=== PATIENT | male | born 1995 | race Two or more races ===

== ENCOUNTER 2019-01-19 11:43 | Emergency (ER) | payer MEDICAID ==
[~2019-01-19] VITALS: Ht 172.7 cm; Wt 81.6 kg
--- NOTE | 2019-01-19 12:09 | NUR ---
ED Nurse Note: ONEIL JEAN-BAPTISTE [address] ORDERED REHAB PROGRAM FOR OD. PT INHALED BATH BOMBS WITH HIS FRIEND. STAFF FOUND THEM LETHARGIC . PT CANNOT BE D/C'D TO PUBLIC CONTACT THE COORDINATION OF CARE PHONE #s [phone] PLEASE SEE FORM IN RACK FOR BED [address]. [address] REPORTER FOR FACILITY IS AT BEDSIDE. AWAITING SONIA FARRAR.
[2019-01-19 12:42] LABS: BASOPHILS % (AUTO) 1.3 % (0.0-2.0); EOSINOPHILS % (AUTO) 0.5 % (0.0-3.0); HEMATOCRIT 47.7 % (42.0-52.0); HEMOGLOBIN 16.3 G/DL (14.2-18.0); LYMPHOCYTES % (AUTO) 16.2 % (20.0-45.0); MEAN CORPUSCULAR VOLUME 86 FL (80-99); MONOCYTES % (AUTO) 8.6 % (1.0-10.0); NEUTROPHILS % (AUTO) 73.4 % (45.0-75.0); PLATELET COUNT 305 K/UL (150-450); RED BLOOD COUNT 5.51 M/UL (4.70-6.10); WHITE BLOOD COUNT 6.9 K/UL (4.8-10.8)
[2019-01-19 12:52] LABS: ANION GAP 8 mmol/L (5-15); BLOOD UREA NITROGEN 17 mg/dL (7-18); CARBON DIOXIDE 26 MMOL/L (21-32); CHLORIDE 103 MMOL/L (98-107); POTASSIUM 4.6 MMOL/L (3.5-5.1); SODIUM 137 MMOL/L (136-145)
[2019-01-19 12:57] LABS: ALANINE AMINOTRANSFERASE 164 U/L (12-78); ALBUMIN/GLOBULIN RATIO 1.1 (1.0-2.7); ALKALINE PHOSPHATASE 95 U/L (46-116); ASPARTATE AMINO TRANSFERASE 61 U/L (15-37); BILIRUBIN,TOTAL 0.4 MG/DL (0.2-1.0)
[2019-01-19 12:58] VITALS: BP 92/58
--- NOTE | 2019-01-19 13:25 | Emergency Room Report ---
History of Present Illness General Chief Complaint: Overdose Source: Patient, EMS, Caregiver Present Illness HPI Patient presents by paramedics with a partner Patient and his partner that was brought together, reported to use 'bath bombs' with the returns processor being bollauren. This was last night approximately 11:00 Today the case management found the patient and his partner somewhat lethargic more than usual Patient initially denied any use of chemicals however does report purchasing this product that the facility placing it in bath water and drinking It was unclear specifically the amount Patient reports that he feels somewhat lethargic However denies any chest pain denies any short of breath denies any abdominal pain denies any headache He reports that he took this started to feel high Allergies: Coded Allergies: No Known Allergies (Unverified , 01/19/19) Patient History Past Medical History: see triage record Pertinent Family History: none Reviewed Nursing Documentation: PMH: Agreed; PSxH: Agreed Nursing Documentation-PM Past Medical History: No Stated History Review of Systems All Other Systems: negative except mentioned in HPI Physical Exam Vital Signs Date Time Temp Pulse Resp B/P (MAP) Pulse Ox O2 Delivery O2 Flow Rate FiO2 01/19/19 11:34 99.0 120 18 136/86 100 Room Air Sp02 EP Interpretation: reviewed, normal General Appearance: well appearing, no apparent distress Head: normocephalic, atraumatic Eyes: bilateral eye PERRL, bilateral eye EOMI ENT: hearing grossly normal, normal pharynx, TMs + canals normal, uvula midline Neck: full range of motion, supple, no meningismus, no bony tend Respiratory: lungs clear, normal breath sounds, no rhonchi, no respiratory distress, no retraction, no accessory muscle use Cardiovascular #1: normal peripheral pulses, regular rate, rhythm, no edema, no gallop, no JVD, no murmur Gastrointestinal: normal bowel sounds, non tender, soft, no mass, no organomegaly, non-distended, no guarding, no hernia, no pulsatile mass, no rebound Genitourinary: no CVA tenderness Musculoskeletal: normal inspection Neurologic: oriented x3, responsive - Patient appears somewhat sleepy and groggy, easily arousable with verbal commands no obvious focal deficit, ware finisher III- XII nml as tested, motor strength/tone normal, sensory intact Psychiatric: no suicidal/homicidal ideation Skin: normal color, no rash, warm/dry, palpation normal Lymphatic: normal inspection, no adenopathy Medical Decision Making Diagnostic Impression: Primary Impression: bath salt ingestion Additional Impression: Drug abuse ER Course Given the patient's history and presentation [employer] control was contacted [phone] Case is discussed they do recommend sodium checks which have already been performed they also report that this substance that was used is not classic for what was previously abused, leading to agitated states Which does correlate with the patient's clinical presentation as well Patient has tested positive for marijuana he reports he has not used marijuana recently At this time remains hemodynamically stable awake alert baseline examination and blood work are appropriate and patient will have initial conservative outpatient trial Labs Test 01/19/19 11:48 01/19/19 12:27 Urine Opiates Screen Negative (NEGATIVE) Urine Barbiturates Screen Negative (NEGATIVE) Phencyclidine (PCP) Screen Negative (NEGATIVE) Urine Amphetamines Screen Negative (NEGATIVE) Urine Benzodiazepines Screen Negative (NEGATIVE) Urine Cocaine Screen Negative (NEGATIVE) Urine Marijuana (THC) Screen Positive (NEGATIVE) White Blood Count 6.9 K/UL (4.8-10.8) Red Blood Count 5.51 M/UL (4.70-6.10) Hemoglobin 16.3 G/DL (14.2-18.0) Hematocrit 47.7 % (42.0-52.0) Mean Corpuscular Volume 86 FL (80-99) Mean Corpuscular Hemoglobin 29.5 PG (27.0-31.0) Mean Corpuscular Hemoglobin Concent 34.1 G/DL (32.0-36.0) Red Cell Distribution Width 12.0 % (11.6-14.8) Platelet Count 305 K/UL (150-450) Mean Platelet Volume 6.2 FL (6.5-10.1) Neutrophils (%) (Auto) 73.4 % (45.0-75.0) Lymphocytes (%) (Auto) 16.2 % (20.0-45.0) Monocytes (%) (Auto) 8.6 % (1.0-10.0) Eosinophils (%) (Auto) 0.5 % (0.0-3.0) Basophils (%) (Auto) 1.3 % (0.0-2.0) Sodium Level 137 MMOL/L (136-145) Potassium Level 4.6 MMOL/L (3.5-5.1) Chloride Level 103 MMOL/L (98-107) Carbon Dioxide Level 26 MMOL/L (21-32) Anion Gap 8 mmol/L (5-15) Blood Urea Nitrogen 17 mg/dL (7-18) Creatinine 1.0 MG/DL (0.55-1.30) Estimat Glomerular Filtration Rate > 60 mL/min (>60) Glucose Level 106 MG/DL (74-106) Calcium Level 9.0 MG/DL (8.5-10.1) Total Bilirubin 0.4 MG/DL (0.2-1.0) Aspartate Amino Transf (AST/SGOT) 61 U/L (15-37) Alanine Aminotransferase (ALT/SGPT) 164 U/L (12-78) Alkaline Phosphatase 95 U/L (46-116) Total Protein 7.7 G/DL (6.4-8.2) Albumin 4.0 G/DL (3.4-5.0) Globulin 3.7 g/dL Albumin/Globulin Ratio 1.1 (1.0-2.7) Serum Alcohol < 3 mg/dL Rhythm Strip Diag. Results EP Interpretation: yes Rate: 90 Rhythm: NSR, no PVC's, no ectopy Last Vital Signs Date Time Temp Pulse Resp B/P (MAP) Pulse Ox O2 Delivery O2 Flow Rate FiO2 01/19/19 12:58 99.0 98 15 92/58 95 Room Air Status: improved Disposition: HOME, SELF-CARE Condition: Improved Referrals: NOT CHOSEN IPA/MD,REFERRING (PCP) Additional Instructions: Patient is provided with the discharge instructions notified to follow up with primary doctor in the next 2-3 days otherwise return to the er with any worsening symptoms. Please note that this report is being documented using [employer] technology. This can lead to erroneous entry secondary to incorrect interpretation by the dictating instrument. Mariel William DO January 19, 2019 13:25
--- NOTE | 2019-01-19 13:42 | NUR ---
ED Nurse Note: sandwich/juice provided to the patient. Dr. William is ok with it. family caseworker at bedside.
[2019-01-19 14:08] VITALS: BP 92/56
--- NOTE | 2019-01-19 14:08 | NUR ---
ER DISCHARGE NOTE: Patient is cleared to be discharged per SONIA TESFAYE, pt is aox4, on room air, with stable vital signs. pt was given dc and prescription instructions, pt was able to verbalize understanding, pt id band removed without complications. pt is able to ambulate with steady gait. pt took all belongings.
--- NOTE | 2019-01-19 14:10 | NUR ---
ED Nurse Note: patient accompanied by the casework specialist from the facility back to the facility.
== END 2019-01-19 14:08 | disposition home or self-care (01) ==
LOC: EDBD 11:43 → EMR 12:25
DX: T50.901A Poisoning by unspecified drugs, medicaments and biological substances, accidental (unintentional), initial encounter (principal); Y92.9 Unspecified place or not applicable; F19.10 Other psychoactive substance abuse, uncomplicated
CPT/HCPCS: 36415; 80053; 80307; 80329; 85025; 99283

== ENCOUNTER 2019-02-03 15:36 | Emergency (ER) | payer MEDICAID ==
[~2019-02-03] VITALS: Ht 165.1 cm; Wt 72.6 kg
[2019-02-03 15:38] VITALS: BP 127/81
--- NOTE | 2019-02-03 15:45 | NUR ---
ED Nurse Note: Patient walked into ED from [facility] rehabilitation program with outpatient case manager due to abdominal pain on the left since 01/29/19. patient reports vomiting on 01/29/19 and the pain came back today as well as vomiting. patient is alert awake x4 ambulatory. breathing unlabored and even. patient reports 10/ pain. outpatient case manager at bedside
[2019-02-03] MEDS ORDERED: INVEGA SUS39 MG/0.25 IM (15:46)
--- NOTE | 2019-02-03 15:54 | Emergency Room Report ---
History of Present Illness General Chief Complaint: Abdominal Pain Source: Patient Present Illness [facility] Patient presents with complaints of left lower abdominal pain Reports that started on Thursday Patient also reports that he is feeling some increased pain in the left upper quadrant Denies any chest pain or shortness of breath denies any diarrhea Denies any fevers Patient did have vomiting episode on Thursday and then again one episode today Denies any right-sided abdominal pain denies any rash denies any change in medications Allergies: Coded Allergies: No Known Allergies (Unverified , 01/19/19) Patient History Past Medical History: see triage record Pertinent Family History: none Reviewed Nursing Documentation: PMH: Agreed; PSxH: Agreed Nursing Documentation-PMH Past Medical History: No Stated History History Of Psychiatric Problem: Yes - bipolar Review of Systems All Other Systems: negative except mentioned in HPI Physical Exam Vital Signs Date Time Temp Pulse Resp B/P (MAP) Pulse Ox O2 Delivery O2 Flow Rate FiO2 02/03/19 15:38 98.2 97 18 95 Room Air Sp02 EP Interpretation: reviewed, normal General Appearance: well appearing, no apparent distress Head: normocephalic, atraumatic Eyes: bilateral eye PERRL, bilateral eye EOMI ENT: hearing grossly normal, normal pharynx, TMs + canals normal, uvula midline Neck: full range of motion, supple, no meningismus, no bony tend Respiratory: lungs clear, normal breath sounds, no rhonchi, no respiratory distress, no retraction, no accessory muscle use Cardiovascular #1: normal peripheral pulses, regular rate, rhythm, no edema, no gallop, no JVD, no murmur Gastrointestinal: normal bowel sounds, non tender - Subjectively points to the left lower quadrant for discomfort, soft, no mass, no organomegaly, non- distended, no guarding, no hernia, no pulsatile mass, no rebound Genitourinary: no CVA tenderness Musculoskeletal: normal inspection Neurologic: oriented x3, responsive, electrical project engineer III-XII nml as tested, motor strength/ tone normal, sensory intact Psychiatric: mood/affect normal Skin: normal color, no rash, warm/dry, palpation normal Lymphatic: normal inspection, no adenopathy Medical Decision Making Diagnostic Impression: Primary Impression: Vomiting ER Course With the history exam and presentation, multiple differentials considered, including but not limited to appendicitis, gastritis, cholecystitis, diverticulitis Patient liver function test appear improved from previous presentation Repeat abdominal exam is soft and benign all blood work otherwise at baseline levels patient resting comfortably and is stable for initial conservative outpatient trial Labs Test 02/03/19 15:55 White Blood Count 8.7 K/UL (4.8-10.8) Red Blood Count 5.13 M/UL (4.70-6.10) Hemoglobin 15.3 G/DL (14.2-18.0) Hematocrit 42.6 % (42.0-52.0) Mean Corpuscular Volume 83 FL (80-99) Mean Corpuscular Hemoglobin 29.8 PG (27.0-31.0) Mean Corpuscular Hemoglobin Concent 35.9 G/DL (32.0-36.0) Red Cell Distribution Width 11.0 % (11.6-14.8) Platelet Count 271 K/UL (150-450) Mean Platelet Volume 5.5 FL (6.5-10.1) Neutrophils (%) (Auto) 55.4 % (45.0-75.0) Lymphocytes (%) (Auto) 30.2 % (20.0-45.0) Monocytes (%) (Auto) 11.5 % (1.0-10.0) Eosinophils (%) (Auto) 1.5 % (0.0-3.0) Basophils (%) (Auto) 1.4 % (0.0-2.0) Urine Color Pale yellow Urine Appearance Clear Urine pH 7 (4.5-8.0) Urine Specific [place] 1.010 (1.005-1.035) Urine Protein Negative (NEGATIVE) Urine Glucose (UA) Negative (NEGATIVE) Urine Ketones Negative (NEGATIVE) Urine Blood Negative (NEGATIVE) Urine Nitrite Negative (NEGATIVE) Urine Bilirubin Negative (NEGATIVE) Urine Urobilinogen Normal MG/DL (0.0-1.0) Urine Leukocyte Esterase Negative (NEGATIVE) Sodium Level 138 MMOL/L (136-145) Potassium Level 3.7 MMOL/L (3.5-5.1) Chloride Level 103 MMOL/L (98-107) Carbon Dioxide Level 26 MMOL/L (21-32) Anion Gap 9 mmol/L (5-15) Blood Urea Nitrogen 17 mg/dL (7-18) Creatinine 1.0 MG/DL (0.55-1.30) Estimat Glomerular Filtration Rate > 60 mL/min (>60) Glucose Level 94 MG/DL (74-106) Calcium Level 8.8 MG/DL (8.5-10.1) Total Bilirubin 0.3 MG/DL (0.2-1.0) Aspartate Amino Transf (AST/SGOT) 45 U/L (15-37) Alanine Aminotransferase (ALT/SGPT) 119 U/L (12-78) Alkaline Phosphatase 93 U/L (46-116) Total Protein 7.5 G/DL (6.4-8.2) Albumin 3.9 G/DL (3.4-5.0) Globulin 3.6 g/dL Albumin/Globulin Ratio 1.1 (1.0-2.7) Lipase 142 U/L (73-393) Urine Opiates Screen Negative (NEGATIVE) Urine Barbiturates Screen Negative (NEGATIVE) Phencyclidine (PCP) Screen Negative (NEGATIVE) Urine Amphetamines Screen Negative (NEGATIVE) Urine Benzodiazepines Screen Negative (NEGATIVE) Urine Cocaine Screen Negative (NEGATIVE) Urine Marijuana (THC) Screen Negative (NEGATIVE) Last Vital Signs Date Time Temp Pulse Resp B/P (MAP) Pulse Ox O2 Delivery O2 Flow Rate FiO2 02/03/19 15:38 98.2 97 18 95 Room Air Status: improved Disposition: HOME, SELF-CARE Condition: Improved Scripts Famotidine (PEPCID AC) 20 Mg Tablet 20 MG PO DAILY, #10 TAB Prov: Mariel William DO 02/03/19 Referrals: NOT CHOSEN IPA/MD,REFERRING (PCP) Additional Instructions: Patient is provided with the discharge instructions notified to follow up with primary doctor in the next 2-3 days otherwise return to the er with any worsening symptoms. Please note that this report is being documented using [employer] technology. This can lead to erroneous entry secondary to incorrect interpretation by the dictating instrument. Mariel William DO February 03, 2019 15:54
[2019-02-03 16:37] LABS: APPEARANCE,URINE CLEAR; BILIRUBIN, URINE NEGATIVE (NEGATIVE); COLOR,URINE PALE YELLOW; GLUCOSE, URINE (UA) NEGATIVE (NEGATIVE); KETONES,URINE NEGATIVE (NEGATIVE); LEUKOCYTE ESTERASE ,URINE NEGATIVE (NEGATIVE); NITRITE,URINE NEGATIVE (NEGATIVE); PH,URINE 7 (4.5-8.0); PROTEIN,URINE NEGATIVE (NEGATIVE); UROBILINOGEN,URINE NORMAL MG/DL (0.0-1.0)
[2019-02-03 16:42] LABS: BASOPHILS % (AUTO) 1.4 % (0.0-2.0); EOSINOPHILS % (AUTO) 1.5 % (0.0-3.0); HEMATOCRIT 42.6 % (42.0-52.0); HEMOGLOBIN 15.3 G/DL (14.2-18.0); LYMPHOCYTES % (AUTO) 30.2 % (20.0-45.0); MEAN CORPUSCULAR VOLUME 83 FL (80-99); MONOCYTES % (AUTO) 11.5 % (1.0-10.0); NEUTROPHILS % (AUTO) 55.4 % (45.0-75.0); PLATELET COUNT 271 K/UL (150-450); RED BLOOD COUNT 5.13 M/UL (4.70-6.10); WHITE BLOOD COUNT 8.7 K/UL (4.8-10.8)
[2019-02-03 16:44] LABS: ANION GAP 9 mmol/L (5-15); BLOOD UREA NITROGEN 17 mg/dL (7-18); CALCIUM 8.8 MG/DL (8.5-10.1); CARBON DIOXIDE 26 MMOL/L (21-32); CHLORIDE 103 MMOL/L (98-107); POTASSIUM 3.7 MMOL/L (3.5-5.1); SODIUM 138 MMOL/L (136-145)
[2019-02-03 16:50] LABS: ALANINE AMINOTRANSFERASE 119 U/L (12-78); ALBUMIN 3.9 G/DL (3.4-5.0); ALBUMIN/GLOBULIN RATIO 1.1 (1.0-2.7); ALKALINE PHOSPHATASE 93 U/L (46-116); ASPARTATE AMINO TRANSFERASE 45 U/L (15-37); BILIRUBIN,TOTAL 0.3 MG/DL (0.2-1.0)
[2019-02-03] MEDS ORDERED: PEPCID AC20 M2 PO (17:43)
[2019-02-03 17:49] VITALS: BP 127/81
--- NOTE | 2019-02-03 17:50 | NUR ---
ER DISCHARGE NOTE: Patient is cleared to be discharged per SONIA TESFAYE, pt is aox4, on room air, with stable vital signs. pt was given dc and prescription instructions, pt was able to verbalize understanding, pt id band and iv site removed without complications. pt is able to ambulate with steady gait. pt took all belongings.
== END 2019-02-03 17:50 | disposition home or self-care (01) ==
LOC: EMR 15:49
DX: R11.10 Vomiting, unspecified (principal); R10.32 Left lower quadrant pain; R10.12 Left upper quadrant pain; F31.9 Bipolar disorder, unspecified
CPT/HCPCS: 36415; 80053; 80307; 81003; 83690; 85025; 99283

== ENCOUNTER 2019-04-04 18:09 | Emergency (ER) | payer MEDICAID, OTHER ==
[~2019-04-04] VITALS: Ht 165.1 cm; Wt 72.1 kg
[~2019-04-04 18:09] MED LIST: INVEGA SUS39 MG/0.25 IM; PEPCID AC20 M2 PO
[2019-04-04 18:34] VITALS: BP 130/89
--- NOTE | 2019-04-04 18:34 | NUR ---
ED Nurse Note: Pt has been experiencing R molar toothache x 3 weeks, could not get appointment with his dentist. Pain 10/ kofi. AOx4, VSS. Will cont to monitor.
--- NOTE | 2019-04-04 19:09 | NUR ---
HAND-OFF: Report given to Lianna SMYTH. patient is stable in bed
[2019-04-04] MEDS ORDERED: Tylenol #3 tab (300mg/30mg) ORAL ONE (19:15)
--- NOTE | 2019-04-04 19:17 | Emergency Room Report ---
History of Present Illness General Chief Complaint: Toothache Source: Patient Present Illness HPI 23 YO Male presents to the ED c/o 06/30 in severity pain and tenderness to Tooth # 30 which is cracked, x 3 weeks. Pt. denies fevers or chills. Was told that he needs extraction however could not afford to have the work done, and the [facility] dental clinic does not answer the phones to make an appt. PT. denies swollen tender lymph nodes. Pt. reports no relief from tylenol. Allergies: Coded Allergies: No Known Allergies (Unverified , 01/19/19) Patient History Past Medical History: see triage record Past Surgical History: none Pertinent Family History: none Reviewed Nursing Documentation: PMH: Agreed; PSxH: Agreed Nursing Documentation-PMH Past Medical History: No Stated History Review of Systems All Other Systems: negative except mentioned in HPI Physical Exam Vital Signs Date Time Temp Pulse Resp B/P (MAP) Pulse Ox O2 Delivery O2 Flow Rate FiO2 04/04/19 18:18 98.4 86 20 130/89 (103) 96 Room Air Sp02 EP Interpretation: reviewed, normal General Appearance: no apparent distress, alert, GCS 15, non-toxic Head: normocephalic, atraumatic Eyes: bilateral eye normal inspection, bilateral eye PERRL ENT: hearing grossly normal, normal voice, other - TTP tooth # 30, no fluctuance, or palpable swelling at the gumline, the tooth is cracked yet still has filling in place. Neck: full range of motion Respiratory: speaking full sentences Cardiovascular #1: regular rate, rhythm Musculoskeletal: back normal, gait/station normal, normal range of motion, non- tender Neurologic: alert, oriented x3, responsive, motor strength/tone normal, sensory intact, speech normal, grossly normal Psychiatric: judgement/insight normal Lymphatic: no adenopathy Medical Decision Making PA Attestation Dr. Mack Is my supervising Physician whom patient management has been discussed with. Diagnostic Impression: Primary Impression: Pain, dental ER Course 23 YO Male presents to the ED c/o 06/30 in severity pain and tenderness to Tooth # 30 which is cracked, x 3 weeks. Pt. denies fevers or chills. Was told that he needs extraction however could not afford to have the work done, and the [facility] dental clinic does not answer the phones to make an appt. PT. denies swollen tender lymph nodes. Pt. reports no relief from tylenol. Ddx considered but are not limited to cellulitis, dental abscess, orbital cellulitis, d/l tooth, dental pain. trigeminal neuralgia Vital signs: are WNL, pt. is afebrile H&PE are most consistent with Dental pain ORDERS: none required at this time, the diagnosis is clinical ED INTERVENTIONS: -Tylenol # 3 -I do not identify an emergent condition at this time. With current presentation , pt. is stable for close outpatient follow up and conservative treatment. D/ w pt. to return promptly to ED with worsening or new symptoms.- Pt. verbalizes' understanding and agreement with proposed treatment plan. DISCHARGE: At this time pt. is stable for d/c to home. Will provide printed patient care instructions, and any necessary prescriptions. Care plan and follow up instructions have been discussed with the patient prior to discharge. Last Vital Signs Date Time Temp Pulse Resp B/P (MAP) Pulse Ox O2 Delivery O2 Flow Rate FiO2 04/04/19 18:34 98.4 86 20 130/89 96 Room Air Disposition: HOME, SELF-CARE Condition: Stable Scripts Ibuprofen* (MOTRIN*) 600 Mg Tablet 600 MG ORAL THREE TIMES A DAY, #30 TAB 0 Refills Prov: Kat Rowe 04/04/19 Acetaminophen With Codeine (T#3) (TYLENOL #3 TAB*) Y Tab 1 TAB ORAL Q6H PRN for For Pain, #4 TAB Prov: Kat Rowe 04/04/19 Amoxicillin* (AMOXIL*) 500 Mg Capsule 500 MG ORAL EVERY 8 HOURS for 7 Days, #28 CAP Prov: Kat Rowe 04/04/19 Patient Instructions: Dental Pain Additional Instructions: Take medications as directed. Follow up with a Dentist in 3-5 days, even if your symptoms have resolved. * * --Please review list of Dental clinics, if you do not already have a Dentist Return sooner to ED if new symptoms occur, or current symptoms become worse. Do not drink alcohol, drive, or operate heavy machinery while taking Tylenol # 3 as this may cause drowsiness. - Please note that this Emergency Department Report was dictated using [employer] refrigerating engineer technology software, occasionally this can lead to erroneous entry secondary to interpretation by the dictation equipment. Kat Rowe Apr 04, 2019 19:17
[2019-04-04] MEDS ORDERED: IBUPROFEN600 MG ORAL (19:20)
[2019-04-04] MEDS ORDERED: ACETAMINOPHEN-1 EAC1 ORAL (19:20)
[2019-04-04] MEDS ORDERED: AMOXICILLIN500 MG ORAL (19:20)
[2019-04-04 19:37] VITALS: BP 118/79
[2019-04-04 19:38] VITALS: BP 118/79
--- NOTE | 2019-04-04 19:38 | NUR ---
ER DISCHARGE NOTE: Patient is cleared to be discharged per ERMD, pt is aox4, on room air, with stable vital signs. pt was given dc and prescription instructions, pt was able to verbalize understanding, pt id band removed without complications. pt is able to ambulate with steady gait with gurney. pt took all belongings.
== END 2019-04-04 19:38 | disposition home or self-care (01) ==
LOC: EMR 19:05
DX: K08.89 Other specified disorders of teeth and supporting structures (principal)
CPT/HCPCS: 99282

== ENCOUNTER 2020-06-14 21:29 | Emergency (ER) | payer OTHER ==
[~2020-06-14] VITALS: Ht 172.7 cm; Wt 93.9 kg
[~2020-06-14 21:29] MED LIST changes: +ACETAMINOPHEN-1 EAC1 ORAL; +AMOXICILLIN500 MG ORAL; +IBUPROFEN600 MG ORAL
[2020-06-14 21:41] VITALS: BP 137/78
[2020-06-14] MEDS: LR 1000ml 1,000 ML IV SCH (21:53)
--- NOTE | 2020-06-14 21:56 | Emergency Room Report ---
History of Present Illness General Chief Complaint: Abnormal Labs Source: Patient Present Illness HPI Patient presents with weakness and dizziness. He has been having his blood sugar checks. They have been high at the program where he is. He is taking Invanz along with pills. He does not know with pills he is on at this time. He denies missing doses. The patient has polyuria polydipsia. The patient denies any body pain at this time. No fevers, chills, sore throat, chest pain, palpitations, nausea, vomiting, diarrhea, dysuria, abdominal pain, shortness of breath, joint pain, rashes, visual changes, headache. The patient was deemed incompetent to stand trial. He is in a probationary program right now. Call treatment facility. Apparently he was started on glipizide 5 mg this m . 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 COVID-19 Screening: Negative COVID-19 COVID-19 Testing Source: [facility] Patient History Past Medical History: see triage record, old chart reviewed Social History: Reports: smoking; Denies: drug use - In the past use of bath salts and THC Social History Narrative in probationary program for incompetence to stand trial - felony assault with deadly weapon Reviewed Nursing Documentation: PMH: Agreed; PSxH: Agreed Nursing Documentation-PMH Hx Diabetes: Yes Review of Systems All Other Systems: negative except mentioned in HPI Physical Exam Vital Signs Date Time Temp Pulse Resp B/P (MAP) Pulse Ox O2 Delivery O2 Flow Rate FiO2 06/14/20 21:22 98.6 100 24 136/78 (97) 98 Room Air Sp02 EP Interpretation: reviewed, normal General Appearance: well appearing, no apparent distress, GCS 15 Head: normocephalic Eyes: bilateral eye normal inspection, bilateral eye PERRL, bilateral eye EOMI ENT: moist mucus membranes - Smoking carr on tongue Neck: supple Respiratory: lungs clear, normal breath sounds Cardiovascular #1: regular rate, rhythm, no edema Cardiovascular #2: 2+ radial (R) Gastrointestinal: normal inspection, normal bowel sounds, non tender, no mass, non-distended, overweight Genitourinary: no CVA tenderness Musculoskeletal: back normal, normal range of motion, gait/station normal Neurologic: alert, oriented x3, grossly normal Psychiatric: mood/affect normal Skin: no rash, warm/dry Medical Decision Making Diagnostic Impression: Primary Impression: Hyperglycemia Additional Impression: Hyperlipidemia Qualified Codes: E78.2 - Mixed hyperlipidemia ER Course Patient presents with weakness and dizziness with hyperglycemia. Differential includes inadequate control of blood sugar, noncompliance, diabetic ketoacidosis, renal failure, occult infection amongst others. Patient evaluated with EKG and labs. He denies any infective symptoms suggesting of infection. Patient be treated with IV hydration. An Accu-Chek will be checked after the bolus and he may receive insulin here. In addition to that we will check to see what medicines he is on at the program. Patient placed on front desk monitor. EKG sinus rhythm 86 normal EKG. labs significant for elevated blood glucose, low sodium (in part due to elevated glucose), bicarb 19, elevated triglycerides. Repeat Accu-Cheks performed. IV insulin administered. Metformin given orally. Lipitor also given orally. Final blood glucose 282. Discussed treatment plan with patient and also with facility. Patient improved. No apparent emergency at this time. Patient is stable for outpatient observation and treatment. Laboratory Tests Test 06/14/20 21:30 06/14/20 22:00 White Blood Count 8.5 K/UL (4.8-10.8) Red Blood Count 4.82 M/UL (4.70-6.10) Hemoglobin 16.0 G/DL (14.2-18.0) Hematocrit 42.1 % (42.0-52.0) Mean Corpuscular Volume 87 FL (80-99) Mean Corpuscular Hemoglobin 33.2 PG (27.0-31.0) H Mean Corpuscular Hemoglobin Concent 38.0 G/DL (32.0-36.0) H Red Cell Distribution Width 11.8 % (11.6-14.8) Platelet Count 244 K/UL (150-450) Mean Platelet Volume 9.4 FL (6.5-10.1) Neutrophils (%) (Auto) 50.0 % (45.0-75.0) Lymphocytes (%) (Auto) 38.3 % (20.0-45.0) Monocytes (%) (Auto) 7.7 % (1.0-10.0) Eosinophils (%) (Auto) 2.0 % (0.0-3.0) Basophils (%) (Auto) 1.9 % (0.0-2.0) Urine Color Pale yellow Urine Appearance Clear Urine pH 8 (4.5-8.0) Urine Specific [place] 1.015 (1.005-1.035) Urine Protein Negative (NEGATIVE) Urine Glucose (UA) 4+ (NEGATIVE) H Urine Ketones 3+ (NEGATIVE) H Urine Blood Negative (NEGATIVE) Urine Nitrite Negative (NEGATIVE) Urine Bilirubin Negative (NEGATIVE) Urine Urobilinogen Normal MG/DL (0.0-1.0) Urine Leukocyte Esterase Negative (NEGATIVE) Sodium Level 128 MMOL/L (136-145) L Potassium Level 4.4 MMOL/L (3.5-5.1) Chloride Level 95 MMOL/L (98-107) L Carbon Dioxide Level 19 MMOL/L (21-32) L Anion Gap 14 mmol/L (5-15) Blood Urea Nitrogen 18 mg/dL (7-18) Creatinine 0.8 MG/DL (0.55-1.30) Estimated Glomerular Filtration Rate > 60 mL/min (>60) Glucose Level 498 MG/DL (74-106) H Calcium Level 8.5 MG/DL (8.5-10.1) Total Bilirubin 0.6 MG/DL (0.2-1.0) Aspartate Amino Transferase (AST) 47 U/L (15-37) H Alanine Aminotransferase (ALT) 75 U/L (12-78) Alkaline Phosphatase 185 U/L (46-116) H Total Creatine Kinase 234 U/L (26-308) Troponin I 0.000 ng/mL (0.000-0.056) Total Protein 6.7 G/DL (6.4-8.2) Albumin 3.6 G/DL (3.4-5.0) Globulin 3.1 g/dL Albumin/Globulin Ratio 1.2 (1.0-2.7) Salicylates Level < 0.2 ug/mL (2.8-20) L Urine Opiates Screen Negative (NEGATIVE) Acetaminophen Level < 2 MCG/ML (10-30) L Urine Barbiturates Screen Negative (NEGATIVE) Phencyclidine (PCP) Screen Negative (NEGATIVE) Urine Amphetamines Screen Negative (NEGATIVE) Urine Benzodiazepines Screen Negative (NEGATIVE) Urine Cocaine Screen Negative (NEGATIVE) Urine Marijuana (THC) Screen Negative (NEGATIVE) Serum Alcohol < 3 mg/dL Triglycerides Level 3547 MG/DL (30-150) H LDL Cholesterol Direct Pending HDL Cholesterol 29 MG/DL (40-60) L Lipase 189 U/L (73-393) EKG Diagnostic Results Rate: normal Rhythm: NSR ST Segments: no acute changes Rhythm Strip Diag. Results EP Interpretation: yes Rhythm: NSR, no PVC's, no ectopy Last Vital Signs Date Time Temp Pulse Resp B/P (MAP) Pulse Ox O2 Delivery O2 Flow Rate FiO2 06/15/20 01:35 97.8 76 20 129/71 98 Room Air Status: improved Disposition: HOME, SELF-CARE - [place] Condition: Improved Scripts Blood-Glucose Meter (Accu-Chek Guide Me Glucose Mtr) 1 Each Each EACH DAILY, #1 Prov: Aleks Mack MD 06/15/20 Lancing Device/Lancets (ACCU-CHEK FASTCLIX LANCET KIT) 1 Each Kit EACH DAILY, #50 Prov: Aleks Mack MD 06/15/20 Atorvastatin Calcium* (ATORVASTATIN CALCIUM*) 20 Mg Tablet 20 MG ORAL BEDTIME, #30 TAB Prov: Aleks Mack MD 06/15/20 Metformin Hcl* (METFORMIN HCL*) 500 Mg Tablet 500 MG ORAL TWICE A DAY, #60 TAB Prov: Aleks Mack MD 06/15/20 Aleks Mack MD Jun 14, 2020 21:56
[2020-06-14 21:58] LABS: APPEARANCE,URINE CLEAR; BILIRUBIN, URINE NEGATIVE (NEGATIVE); COLOR,URINE PALE YELLOW; GLUCOSE, URINE (UA) 4+ (NEGATIVE); KETONES,URINE 3+ (NEGATIVE); LEUKOCYTE ESTERASE ,URINE NEGATIVE (NEGATIVE); NITRITE,URINE NEGATIVE (NEGATIVE); PH,URINE 8 (4.5-8.0); PROTEIN,URINE NEGATIVE (NEGATIVE); UROBILINOGEN,URINE NORMAL MG/DL (0.0-1.0)
[2020-06-14 21:59] LABS: BASOPHILS % (AUTO) 1.9 % (0.0-2.0); HEMATOCRIT 42.1 % (42.0-52.0); LYMPHOCYTES % (AUTO) 38.3 % (20.0-45.0); MEAN CORPUSCULAR VOLUME 87 FL (80-99); MONOCYTES % (AUTO) 7.7 % (1.0-10.0); PLATELET COUNT 244 K/UL (150-450); RED BLOOD COUNT 4.82 M/UL (4.70-6.10); RED CELL DISTRIBUTION WIDTH 11.8 % (11.6-14.8); WHITE BLOOD COUNT 8.5 K/UL (4.8-10.8)
[2020-06-14] MEDS ORDERED: GLIPIZIDE5 MG ORAL (22:25)
[2020-06-14 22:52] LABS: ANION GAP 14 mmol/L (5-15); BLOOD UREA NITROGEN 18 mg/dL (7-18); CALCIUM 8.5 MG/DL (8.5-10.1); CARBON DIOXIDE 19 MMOL/L (21-32); CHLORIDE 95 MMOL/L (98-107); CREATININE 0.8 MG/DL (0.55-1.30); POTASSIUM 4.4 MMOL/L (3.5-5.1); SODIUM 128 MMOL/L (136-145)
[2020-06-14] MEDS ORDERED: metFORMIN 500mg tab ORAL STA (22:56)
[2020-06-14 22:57] LABS: ALANINE AMINOTRANSFERASE 75 U/L (12-78); ALBUMIN 3.6 G/DL (3.4-5.0); ALBUMIN/GLOBULIN RATIO 1.2 (1.0-2.7); ALKALINE PHOSPHATASE 185 U/L (46-116); ASPARTATE AMINO TRANSFERASE 47 U/L (15-37); BILIRUBIN,TOTAL 0.6 MG/DL (0.2-1.0); CREATINE KINASE 234 U/L (26-308)
[2020-06-14] MEDS ORDERED: Insulin Human Regular 100units/ml 3ml IV ONE (23:00)
[2020-06-15 00:21] LABS: HDL CHOLESTEROL 29 MG/DL (40-60); TRIGLYCERIDES 3547 MG/DL (30-150)
[2020-06-15] MEDS: LR 1000ml 1,000 ML IV SCH (01:20)
[2020-06-15] MEDS ORDERED: ACCU-CHEK FAST1 EAC1 MC (01:33)
[2020-06-15] MEDS ORDERED: ATORVASTATIN CA20 MG ORAL (01:33)
[2020-06-15] MEDS ORDERED: METFORMIN HCL500 M1 ORAL (01:33)
[2020-06-15] MEDS ORDERED: ACCU-CHEK GUID1 EAC3 MC (01:33)
[2020-06-15 01:34] VITALS: BP 129/71
[2020-06-15 01:35] VITALS: BP 129/71
--- NOTE | 2020-06-17 15:04 | Cardiology Report ---
APPROVED REPORT EKG Measurement Heart [id number] <Conclusion> Normal sinus rhythm Normal ECG
== END 2020-06-15 01:35 | disposition home or self-care (01) ==
LOC: EDBD 21:29 → EMR 22:25
DX: E11.65 Type 2 diabetes mellitus with hyperglycemia (principal); E78.2 Mixed hyperlipidemia; Z79.84 Long term (current) use of oral hypoglycemic drugs; F17.200 Nicotine dependence, unspecified, uncomplicated
CPT/HCPCS: 36415; 80053; 80307; 81003; 82550; 83690; 83718; 83721; 84478; 84484; 85025; 93005; 96361; 96374; G0480; G0481; J1815; J7030; Z7502; 99284

== ENCOUNTER 2020-06-21 10:32 | Emergency (ER) | payer OTHER ==
[~2020-06-21] VITALS: Ht 170.2 cm; Wt 91.2 kg
[~2020-06-21 10:32] MED LIST changes: +ACCU-CHEK FAST1 EAC1 MC; +ACCU-CHEK GUID1 EAC3 MC; +ATORVASTATIN CA20 MG ORAL; +GLIPIZIDE5 MG ORAL; +METFORMIN HCL500 M1 ORAL
[2020-06-21 10:48] VITALS: BP 121/88
--- NOTE | 2020-06-21 10:50 | Emergency Room Report ---
History of Present Illness General Chief Complaint: Dizziness Source: Patient, EMS Present Illness HPI Patient is currently under government mandated treatment program. Patient has a history of diabetes. Patient states that he had too much sugar this morning as result his sugar was elevated and he felt weak and dizzy and blurry vision. He denied any chest pain shortness of breath. He is otherwise compliant with medications. Denies any nausea vomiting diarrhea chills. Apparently patient had a similar episode in the past and was seen here with a negative work-up. No other complaints are noted patient noted to be moderate. In route reported sugar was greater than 300. No other modifying factors. No other associated signs and symptoms. No other complaints were noted. 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 Reviewed Nursing Documentation: PMH: Agreed; PSxH: Agreed Nursing Documentation-PMH Hx Diabetes: Yes Review of Systems All Other Systems: negative except mentioned in HPI Physical Exam Vital Signs Date Time Temp Pulse Resp B/P (MAP) Pulse Ox O2 Delivery O2 Flow Rate FiO2 06/21/20 10:26 98.1 90 16 121/88 (99) 98 Room Air Sp02 EP Interpretation: reviewed, normal General Appearance: normal inspection, well appearing, no apparent distress, alert Head: atraumatic Eyes: bilateral eye normal inspection ENT: normal ENT inspection, hearing grossly normal, normal voice Neck: normal inspection, full range of motion, supple, no bony tend Respiratory: normal inspection, lungs clear, normal breath sounds, no respiratory distress, no retraction, no wheezing Cardiovascular #1: regular rate, rhythm, no edema Gastrointestinal: normal inspection, normal bowel sounds, non tender, soft, no guarding, no hernia Genitourinary: no CVA tenderness Musculoskeletal: normal inspection, back normal, normal range of motion Neurologic: alert, responsive, speech normal, normal inspection Psychiatric: normal inspection, judgement/insight normal, mood/affect normal Medical Decision Making Diagnostic Impression: Primary Impression: Dizziness Additional Impression: Hyperglycemia ER Course Patient presents emergency department today with repeated episodes of hypoglycemia secondary to dietary indiscretion. Patient exam is fairly benign. Laboratory work-up was obtained to rule out DKA. Differential diagnosis include DKA dietary indiscretion, poor control diabetes just name a few. Patient's exam is consistent with elevated sugars secondary to dietary reasons. There was no evidence of DKA. Patient received fluids repeat Accu-Chek showed sugar to be 301. There is no evidence of any severe disease at this time. Recommend better control diet.. Therefore I felt the patient could be discharged. Patient is advised to follow up with primary doctor in 2-3 days and return the emergency room for any worsening symptoms and as needed. Labs Test 06/21/20 10:42 White Blood Count 4.4 K/UL (4.8-10.8) Red Blood Count 5.30 M/UL (4.70-6.10) Hemoglobin 15.9 G/DL (14.2-18.0) Hematocrit 45.0 % (42.0-52.0) Mean Corpuscular Volume 85 FL (80-99) Mean Corpuscular Hemoglobin 30.1 PG (27.0-31.0) Mean Corpuscular Hemoglobin Concent 35.5 G/DL (32.0-36.0) Red Cell Distribution Width 11.9 % (11.6-14.8) Platelet Count 228 K/UL (150-450) Mean Platelet Volume 8.4 FL (6.5-10.1) Neutrophils (%) (Auto) 38.7 % (45.0-75.0) Lymphocytes (%) (Auto) 47.1 % (20.0-45.0) Monocytes (%) (Auto) 9.3 % (1.0-10.0) Eosinophils (%) (Auto) 2.4 % (0.0-3.0) Basophils (%) (Auto) 2.6 % (0.0-2.0) Sodium Level 132 MMOL/L (136-145) Potassium Level 3.9 MMOL/L (3.5-5.1) Chloride Level 101 MMOL/L (98-107) Carbon Dioxide Level 19 MMOL/L (21-32) Anion Gap 12 mmol/L (5-15) Blood Urea Nitrogen 10 mg/dL (7-18) Creatinine 0.9 MG/DL (0.55-1.30) Estimat Glomerular Filtration Rate > 60 mL/min (>60) Glucose Level 413 MG/DL (74-106) Calcium Level 9.0 MG/DL (8.5-10.1) Total Bilirubin 0.4 MG/DL (0.2-1.0) Aspartate Amino Transf (AST/SGOT) 6 U/L (15-37) Alanine Aminotransferase (ALT/SGPT) 102 U/L (12-78) Alkaline Phosphatase 156 U/L (46-116) Total Protein 6.5 G/DL (6.4-8.2) Albumin 3.9 G/DL (3.4-5.0) Globulin 2.6 g/dL Last Vital Signs Date Time Temp Pulse Resp B/P (MAP) Pulse Ox O2 Delivery O2 Flow Rate FiO2 06/21/20 10:26 98.1 90 16 121/88 (99) 98 Room Air Status: improved Disposition: HOME, SELF-CARE Condition: Stable Omega Chambers MD Jun 21, 2020 10:50
--- NOTE | 2020-06-21 10:53 | NUR ---
ED Nurse Note: Patient was KARIA RA 26 from [facility] c/o dizzyness and blurry vision, BS 398, pt was seen at [facility] [place] 1 week ago for same symptoms. Patient calm, and cooperative, AAO x4, VSS at this time.
[2020-06-21 11:01] LABS: BASOPHILS % (AUTO) 2.6 % (0.0-2.0); EOSINOPHILS % (AUTO) 2.4 % (0.0-3.0); HEMOGLOBIN 15.9 G/DL (14.2-18.0); LYMPHOCYTES % (AUTO) 47.1 % (20.0-45.0); MEAN CORPUSCULAR VOLUME 85 FL (80-99); MONOCYTES % (AUTO) 9.3 % (1.0-10.0); NEUTROPHILS % (AUTO) 38.7 % (45.0-75.0); PLATELET COUNT 228 K/UL (150-450); RED CELL DISTRIBUTION WIDTH 11.9 % (11.6-14.8); WHITE BLOOD COUNT 4.4 K/UL (4.8-10.8)
[2020-06-21 11:29] LABS: ANION GAP 12 mmol/L (5-15); ASPARTATE AMINO TRANSFERASE 6 U/L (15-37); BILIRUBIN,TOTAL 0.4 MG/DL (0.2-1.0); CARBON DIOXIDE 19 MMOL/L (21-32); CHLORIDE 101 MMOL/L (98-107); CREATININE 0.9 MG/DL (0.55-1.30); POTASSIUM 3.9 MMOL/L (3.5-5.1); SODIUM 132 MMOL/L (136-145)
[2020-06-21 11:50] LABS: ALANINE AMINOTRANSFERASE 102 U/L (12-78); ALBUMIN 3.9 G/DL (3.4-5.0); ALKALINE PHOSPHATASE 156 U/L (46-116); BLOOD UREA NITROGEN 10 mg/dL (7-18)
[2020-06-21 12:31] VITALS: BP 119/74
--- NOTE | 2020-06-21 12:31 | NUR ---
ED Nurse Note: Pt cleared by ERMD for discharge. DC instructions was given and explained to pt and verbalized understanding of teachings. All medical deviecs such as ID band andb IV line removed. Pt is AAO x4, ambulatory and left with all personal belongings. P/u by facility's personnel.
== END 2020-06-21 12:31 | disposition home or self-care (01) ==
LOC: EDBD 10:32 → EMR 12:22
DX: E11.65 Type 2 diabetes mellitus with hyperglycemia (principal); R42 Dizziness and giddiness
CPT/HCPCS: 36415; 80053; 85025; 96360; 96361; J7030; Z7502; 99284